=== PATIENT | female | born 1990 | race Caucasian/White ===

== ENCOUNTER 2017-02-27 01:22 | Emergency (ER) | payer MEDICAID ==
[2017-02-27 01:40] VITALS: BP 134/80
--- NOTE | 2017-02-27 02:17 | EDM.PDOC ---
ED HPI GENERAL MEDICAL PROBLEM - General Chief Complaint: Lower Extremity Injury/Pain Stated Complaint: SORE LEFT ANKLE Time Seen by Provider: 02/27/17 02:09 Source of Information: Reports: Patient History Limitations: Reports: No Limitations - History of Present Illness INITIAL COMMENTS - FREE TEXT/NARRATIVE: This lady complains of severe ankle pain. She said that yesterday she started twisted little bit and then [place] around [place]. She said the pain has gotten worse. She describes the pain as sort of all over the ankle but mostly in the area of the Achilles tendon. Left Ankle Pain Score (Numeric/FACES): 7 - Related Data Allergies Allergy/AdvReac Type Severity Reaction Status Date / Time amoxicillin [Amoxicillin] Allergy Hives Verified 02/27/17 01:33 Home Meds: Home Meds Acetaminophen [Tylenol Extra Strength] 1,000 mg PO ASDIRECTED 02/27/17 [History] Gabapentin [Gabapentin] 600 mg PO QID 02/27/17 [History] Past Medical History Musculoskeletal History: Reports: Fracture Psychiatric History: Reports: Anxiety - Infectious Disease History Infectious Disease History: Reports: Chicken Pox Social & Family History - Tobacco Use Smoking Status *Q: Current Every Day Smoker Years of Tobacco use: 7 Packs/Tins Daily: 0.5 - Caffeine Use Caffeine Use: Reports: Coffee, Soda - Alcohol Use Days Per Week of Alcohol Use: 0 - Recreational Drug Use Recreational Drug Use: No Review of Systems - Review of Systems Review Of Systems: ROS reveals no pertinent complaints other than HPI. Trauma Exam - Physical Exam Exam: See Below Exam Limited By: No Limitations General Appearance: Reports: Alert, WD/WN, Mild Distress Extremities: Other (There's no obvious swelling or ecchymosis of the ankle joint. Ankle joint is nontender and has good range of motion. There severe tenderness over the Achilles tendon about 3 cm proximal to the insertion on the calcaneus there is a severe palpable grating of the tendon and tendon sheath on flexion and extension of the ankle consistent with tenosynovitis.) Neurologic: Reports: No Motor/Sensory Deficits Skin: Reports: Normal Color Course - Vital Signs Last Recorded V/S: Last Vital Signs Temp 36.7 C 02/27/17 01:36 Pulse 100 02/27/17 01:36 Resp 16 02/27/17 01:36 BP 134/80 02/27/17 01:36 Pulse Ox 98 02/27/17 01:36 - Re-Assessments/Exams Free Text/Narrative Re-Assessment/Exam: 02/27/17 02:17 The patient was placed in a Cam Walker boot Departure - Departure Time of Disposition: 02:17 Disposition: Home, Self-Care 01 Condition: fair Clinical Impression: Achilles tendonitis - Discharge Information Forms: ED Department Discharge Additional Instructions: You have Achilles tenosynovitis which is an inflammation of the tendon and the sheath that the tendon runs through. That's why you may be able to feel a grating sensation when you move your ankle. This is caused by inflammation. Wear the boot to keep from having to flex and extend her ankle. Keep it elevated and apply ice as much as possible. Take the prednisone 20 mg twice daily for one week. This will help relieve the inflammation. Ibuprofen 400 mg 3 times a day will also help.
== END 2017-02-27 02:42 | disposition home or self-care (01) ==
LOC: JP.ED 01:22
DX: M76.62 Achilles tendinitis, left leg (principal); F17.210 Nicotine dependence, cigarettes, uncomplicated; Z88.1 Allergy status to other antibiotic agents; W18.40XA Slipping, tripping and stumbling without falling, unspecified, initial encounter
CPT/HCPCS: 99283